=== PATIENT | female | born 1990 | race Caucasian/White ===

== ENCOUNTER 2017-08-03 19:36 | Emergency (ER) | payer MEDICAID ==
[~2017-08-03] VITALS: Ht 170.2 cm; Wt 64.0 kg
[~2017-08-03 19:36] MED LIST: METO-292 PO; ONDA4TAB6 PO; ONDA8TAB6 PO
[2017-08-03 19:41] VITALS: BP 102/69
[2017-08-03] MEDS ORDERED: diphenhydrAMINE 50 mg/ml inj IV ONE (20:10)
[2017-08-03] MEDS ORDERED: proCHLORperazine 10 MG/2 ml inj IV ONE (20:10)
[2017-08-03] MEDS ORDERED: diazepam 5mg tablet PO ONE (20:10)
[2017-08-03] MEDS ORDERED: valproate sod inj 500 MG in normal saline 100ml IV soln 95 ML IV ONE (20:10)
[2017-08-03] MEDS ORDERED: GUAI10SY2 PO (20:16)
[2017-08-03] MEDS ORDERED: AMOX-422 PO (20:16)
[2017-08-03] MEDS ORDERED: PROC-8 PO (20:16)
[2017-08-03] MEDS ORDERED: ketorolac trometh. 30mg/ml inj. IV ONE (20:20)
== END 2017-08-03 21:47 | disposition home or self-care (01) ==
LOC: ER 19:36
DX: G43.909 Migraine, unspecified, not intractable, without status migrainosus (principal); J32.9 Chronic sinusitis, unspecified; Z98.890 Other specified postprocedural states; Z91.040 Latex allergy status
CPT/HCPCS: 96365; 96375; 99284; J0780; J1200; J1885; J7030

== ENCOUNTER 2017-09-25 12:43 | Emergency (ER) | payer MEDICAID ==
[~2017-09-25] VITALS: Ht 170.2 cm; Wt 60.9 kg
[~2017-09-25 12:43] MED LIST changes: +PROC-8 PO
[2017-09-25] MEDS ORDERED: acetaminophen 325mg tablet PO ONE (13:05)
[2017-09-25] MEDS ORDERED: ketorolac trometh. 30mg/ml inj. IV ONE (13:05)
[2017-09-25] MEDS ORDERED: normal saline 1000ml 1,000 ML IV ONE (13:05)
[2017-09-25] MEDS ORDERED: proCHLORperazine 10 MG/2 ml inj IV ONE (13:05)
[2017-09-25] MEDS ORDERED: aspirin 325mg tablet PO ONE (13:05)
[2017-09-25] MEDS ORDERED: dexamethasone 4mg/ml inj IV ONE (13:05)
[2017-09-25] MEDS ORDERED: LORazepam 2 mg/ml vial IV ONE (13:05)
[2017-09-25 15:03] VITALS: BP 105/64
== END 2017-09-25 15:22 | disposition home or self-care (01) ==
LOC: ER 12:43
DX: R51 Headache (principal); R42 Dizziness and giddiness; R11.2 Nausea with vomiting, unspecified; G43.909 Migraine, unspecified, not intractable, without status migrainosus; Z88.8 Allergy status to other drugs, medicaments and biological substances
CPT/HCPCS: 96361; 96374; 96375; 99284; J0780; J1100; J1885; J2060; J7030

== ENCOUNTER 2017-12-14 08:18 | Emergency (ER) | payer MEDICAID ==
[~2017-12-14] VITALS: Ht 170.2 cm; Wt 61.8 kg
[2017-12-14] MEDS ORDERED: LORazepam 2 mg/ml vial IV ONE (09:10)
[2017-12-14] MEDS ORDERED: proCHLORperazine 10 MG/2 ml inj IV ONE (09:10)
[2017-12-14] MEDS ORDERED: normal saline 1000ML IV soln IVB ONE (09:10)
[2017-12-14] MEDS ORDERED: ketorolac trometh. 30mg/ml inj. IV ONE (09:10)
[2017-12-14 12:00] VITALS: BP 91/51
== END 2017-12-14 12:03 | disposition home or self-care (01) ==
LOC: ER 08:18
DX: G43.909 Migraine, unspecified, not intractable, without status migrainosus (principal); Z91.040 Latex allergy status; Z79.899 Other long term (current) drug therapy
CPT/HCPCS: 96361; 96374; 96375; 99285; J0780; J1885; J2060; J7030; 99284

== ENCOUNTER 2017-12-22 01:01 | Emergency (ER) | payer MEDICAID, OTHER ==
[~2017-12-22] VITALS: Ht 170.2 cm; Wt 62.2 kg
[2017-12-22] MEDS ORDERED: ondansetron 4mg rapidly disintigrating tab PO ONE (02:25)
[2017-12-22] MEDS ORDERED: metroNIDAZOLE 500mg tablet PO ONE (03:10)
[2017-12-22] MEDS ORDERED: acetaminophen 325mg tablet PO ONE (03:10)
[2017-12-22] MEDS ORDERED: iohexol 300mg/ml 100ml inj. ONE (04:04)
[2017-12-22] MEDS ORDERED: metoclopramide 5 mg/ml inj IM ONE (04:50)
[2017-12-22 05:08] LABS: URINE HCG NEGATIVE (NEG)
[2017-12-22 05:21] LABS: CLARITY,URINE CLEAR (Clear); COLOR,URINE YELLOW (Yellow); GLUCOSE, URINE NEGATIVE (Neg); KETONES,URINE NEGATIVE (Neg); LEUKOCYTE ESTERASE ,URINE NEGATIVE (Neg); NITRITES, URINE NEGATIVE (Neg); OCCULT BLOOD,URINE TRACE-INTACT (Neg); PROTEIN,URINE NEGATIVE (Neg); UROBILINOGEN,URINE 0.2 E.U/dL (0.2-1.0)
[2017-12-22 05:22] LABS: BACTERIA,URINE NONE SEEN /HPF (Neg); RBC,URINE 0-2 /HPF (0-2); UA COLLECTION TYPE CLN CATCH MIDSTREAM; WBC,URINE NONE SEEN /HPF (0-4)
[2017-12-22 05:23] LABS: SQUAMOUS EPITHELIAL CELL,UR NONE SEEN /LPF (FEW)
[2017-12-22 05:30] LABS: BASOPHILS % (AUTO) 0.2 % (0-1); EOSINOPHILS # (AUTO) 0.1 X10'3 (0-0.9); EOSINOPHILS % (AUTO) 1.1 % (0-6); HEMATOCRIT 40.2 % (35.0-45.0); LYMPHOCYTES # (AUTO) 1.3 X10'3 (1.1-4.8); LYMPHOCYTES % (AUTO) 18.5 % (21-51); MEAN CORPUSCULAR HEMOGLOBIN 31.9 PG (27.0-31.0); MEAN CORPUSCULAR HGB CONC 34.9 % (33.0-36.5); MEAN CORPUSCULAR VOLUME 91.3 FL (78-98); MEAN PLATELET VOLUME 7.4 FL (7.4-10.4); MONOCYTES # (AUTO) 0.3 X10'3 (0-0.9); MONOCYTES % (AUTO) 4.8 % (2-12); NEUTROPHILS # (AUTO) 5.1 X10'3 (1.8-7.7); NEUTROPHILS % (AUTO) 75.4 % (42-75); PLATELET COUNT 206 X10'3 (140-440); RED CELL DISTRIBUTION WIDTH 12.2 % (11.5-14.5); WHITE BLOOD COUNT 6.8 X10'3 (4.5-11.0)
[2017-12-22 05:41] LABS: ALBUMIN 4.1 G/DL (3.4-5.0); ANION GAP 14 (8-16); BLOOD UREA NITROGEN 8 MG/DL (7-18); BUN/CREATININE RATIO 11.6 (6.6-38.0); CALCIUM 8.2 MG/DL (8.5-10.1); CHLORIDE 106 MMOL/L (99-107); CREATININE 0.69 MG/DL (0.40-0.90); GLUCOSE 103 MG/DL (70-104); POTASSIUM 3.6 MMOL/L (3.5-5.1); SODIUM 141 MMOL/L (135-145); TOTAL CARBON DIOXIDE 21.5 MMOL/L (24-32); eGFR > 90 ML/MIN
[2017-12-22] MEDS ORDERED: HYDR-569 PO (05:47)
[2017-12-22 07:41] VITALS: BP 98/65
== END 2017-12-22 06:07 | disposition home or self-care (01) ==
LOC: ER 01:01 → EEVIPCON 01:01 → ER 06:07
DX: T74.21XA Adult sexual abuse, confirmed, initial encounter (principal); R10.9 Unspecified abdominal pain; R10.2 Pelvic and perineal pain; R10.30 Lower abdominal pain, unspecified; G43.909 Migraine, unspecified, not intractable, without status migrainosus; Z91.040 Latex allergy status; Z79.899 Other long term (current) drug therapy
CPT/HCPCS: 36415; 74177; 80048; 81001; 81025; 85025; 96372; 99285; J2765; J3490; J7030; Q9967

== ENCOUNTER 2018-02-03 18:46 | Emergency (ER) | payer MEDICAID, OTHER ==
[~2018-02-03] VITALS: Ht 170.2 cm; Wt 54.9 kg
[~2018-02-03 18:46] MED LIST changes: +HYDR-569 PO
[2018-02-03] MEDS ORDERED: ondansetron/PF 4mg/2ml inj IV ONE (19:05)
[2018-02-03] MEDS ORDERED: normal saline 1000ML IV soln IVB ONE (19:05)
[2018-02-03] MEDS: morphine 4 MG/ML inj SYRINge IV PRN ×2 (19:11→22:19)
[2018-02-03 19:32] LABS: BASOPHILS % (AUTO) 0.2 % (0-1); EOSINOPHILS # (AUTO) 0.3 X10'3 (0-0.9); HEMATOCRIT 40.9 % (35.0-45.0); HEMOGLOBIN 14.1 g/dl (12.0-16.0); LYMPHOCYTES # (AUTO) 2.4 X10'3 (1.1-4.8); LYMPHOCYTES % (AUTO) 28.3 % (21-51); MEAN CORPUSCULAR HGB CONC 34.5 % (33.0-36.5); MEAN CORPUSCULAR VOLUME 92.7 FL (78-98); MEAN PLATELET VOLUME 7.7 FL (7.4-10.4); MONOCYTES # (AUTO) 0.4 X10'3 (0-0.9); MONOCYTES % (AUTO) 5.3 % (2-12); NEUTROPHILS # (AUTO) 5.2 X10'3 (1.8-7.7); NEUTROPHILS % (AUTO) 62.2 % (42-75); PLATELET COUNT 224 X10'3 (140-440); RED BLOOD COUNT 4.41 X10'6 (4.20-5.60); RED CELL DISTRIBUTION WIDTH 12.6 % (11.5-14.5); WHITE BLOOD COUNT 8.4 X10'3 (4.5-11.0)
[2018-02-03 19:35] LABS: CLARITY,URINE SLIGHTLY CLOUDY (Clear); COLOR,URINE YELLOW (Yellow); GLUCOSE, URINE NEGATIVE (Neg); KETONES,URINE NEGATIVE (Neg); LEUKOCYTE ESTERASE ,URINE NEGATIVE (Neg); NITRITES, URINE NEGATIVE (Neg); OCCULT BLOOD,URINE NEGATIVE (Neg); PROTEIN,URINE NEGATIVE (Neg); UROBILINOGEN,URINE 0.2 E.U/dL (0.2-1.0)
[2018-02-03 19:36] LABS: URINE HCG NEGATIVE (NEG)
[2018-02-03 19:41] LABS: BACTERIA,URINE FEW /HPF (Neg); MUCUS STRANDS FEW /LPF (Neg); RBC,URINE NONE SEEN /HPF (0-2); SQUAMOUS EPITHELIAL CELL,UR MODERATE /LPF (FEW); UA COLLECTION TYPE CLN CATCH MIDSTREAM; WBC,URINE 0-4 /HPF (0-4)
[2018-02-03 19:48] LABS: ALANINE AMINOTRANSFERASE 14 U/L (12-78); ALBUMIN 3.8 G/DL (3.4-5.0); ALBUMIN/GLOBULIN RATIO 1.2 (1.1-1.5); ALKALINE PHOSPHATASE 56 IU/L (46-116); ANION GAP 10 (8-16); ASPARTATE AMINO TRANSFERASE 11 U/L (10-37); BILIRUBIN,TOTAL 0.6 MG/DL (0.1-1.0); BLOOD UREA NITROGEN 10 MG/DL (7-18); BUN/CREATININE RATIO 14.3 (6.6-38.0); CALCIUM 8.7 MG/DL (8.5-10.1); CHLORIDE 105 MMOL/L (99-107); GLUCOSE 90 MG/DL (70-104); LIPASE 307 U/L (73-393); POTASSIUM 3.8 MMOL/L (3.5-5.1); SODIUM 141 MMOL/L (135-145); eGFR > 90 ML/MIN
[2018-02-03] MEDS ORDERED: ketorolac trometh. 30mg/ml inj. IV ONE (20:05)
[2018-02-03] MEDS ORDERED: fentaNYL/PF 50MCG/1 ML 2ML syringe IV ONE (20:25)
[2018-02-03 21:11] LABS: D-DIMER < 0.19 MG/L FEU (0-0.50)
[2018-02-03] MEDS ORDERED: HYDR-569 PO (22:39)
[2018-02-03] MEDS ORDERED: ONDA4TAB9 SL (22:39)
[2018-02-03] MEDS ORDERED: HYDROcodone/acetaminophen 10/325mg tab PO ONE (22:40)
[2018-02-03 22:45] VITALS: BP 99/68
== END 2018-02-03 22:51 | disposition home or self-care (01) ==
LOC: ER 18:46
DX: R10.11 Right upper quadrant pain (principal); G43.909 Migraine, unspecified, not intractable, without status migrainosus; Z98.890 Other specified postprocedural states; Z91.040 Latex allergy status
CPT/HCPCS: 36415; 71045; 71100; 74176; 80053; 81001; 81025; 83690; 83880; 84145; 85025; 85379; 93005; 96374; 96375; 96376; 99285; J1885; J2270; J2405; 84484